=== PATIENT | female | born 1950 | race Hispanic/Latino ===

== ENCOUNTER 2018-02-17 16:04 | Emergency (ER) | payer OTHER, MEDICARE ==
[~2018-02-17 16:04] MED LIST: ASPI-1197 PO; GLIP10TA9 PO; LIRA0.6P SQ; LISI40TA4 PO; OMEP20CA10 PO; PREG150C PO; SERT100T12 PO; SIMV40TA5 PO; TRAM50TA4 PO; TRAZ-185 PO
[2018-02-17] MEDS ORDERED: ACETAMINOPHEN EXTRA STRENGTH 500 MG TABLET ONE (16:56)
[2018-02-17] MEDS ORDERED: SODIUM CHLORIDE 0.9% 1000ML 1,000 ML IV ONE (16:56)
[2018-02-17 16:57] LABS: BASOPHILS % (AUTO) 0.3 % (0.0-5.0); HEMATOCRIT 35.3 % (36-48); LYMPHOCYTES % (AUTO) 11.4 % (21.0-51.0); MEAN CORPUSCULAR HGB CONC 33.6 g/dL (32.0-36.0); MEAN CORPUSCULAR VOLUME 92.3 fL (79-99); MONOCYTES % (AUTO) 7.6 % (3.0-13.0); NEUTROPHILS % (AUTO) 80.7 % (40.0-77.0); PLATELET COUNT (AUTO) 111 K/uL (130-400); RED BLOOD CELL COUNT(AUTO) 3.82 MIL/uL (4.00-5.50); RED CELL DISTRIBUTION WIDTH 12.1 % (11.0-15.5); WHITE BLOOD COUNT (AUTO) 6.5 K/uL (4.8-10.8)
[2018-02-17 17:10] LABS: INR 1.03 (0.85-1.15); PROTHROMBIN TIME 10.8 SEC (9.6-11.6)
[2018-02-17 17:14] LABS: CARBON DIOXIDE 28 mmol/L (21-32); CHLORIDE 101 mmol/L (101-111); CREATININE 1.6 mg/dL (0.5-1.5); GLOMERULAR FILTR. RATE CALC 34 mL/min (>60); GLUCOSE,RANDOM 143 mg/dL (70-105); POTASSIUM 4.1 mmol/L (3.5-5.1); SODIUM SERUM 136 mmol/L (136-145); UREA NITROGEN, BLOOD 22 mg/dL (7-18)
[2018-02-17 17:22] LABS: APPEARANCE,URINE Clear (CLEAR); BILIRUBIN,URINE Negative (NEGATIVE); COLOR,URINE Yellow (YELLOW); GLUCOSE, URINE (UA) 500 mg/dL (NEGATIVE); KETONES,URINE Negative (NEGATIVE); LEUKOCYTE ESTERASE ,URINE Small (NEGATIVE); NITRATE,URINE Negative (NEGATIVE); OCCULT BLOOD,URINE Negative (NEGATIVE); PH,URINE 5.5 (5.0-8.0); PROTEIN,URINE Negative (NEGATIVE)
[2018-02-17 17:25] LABS: ALANINE AMINOTRANSFERASE 26 U/L (12-78); ALBUMIN 3.8 g/dL (3.5-5.0); ASPARTATE AMINOTRANSFERASE 30 U/L (10-37); BILIRUBIN,TOTAL 0.5 mg/dL (0.2-1.0); CREATINE KINASE, TOTAL 389 U/L (21-232); MYOGLOBIN 155 ng/mL (10-92); TOTAL PROTEIN, SERUM 7.6 g/dL (6.0-8.3); TROPONIN I < 0.04 ng/mL (0.00-0.06)
[2018-02-17 17:37] LABS: BACTERIA,URINE Rare /HPF (None Seen); RBC,URINE 0-1 /HPF (0-1); SQUAMOUS EPITHELIAL CELL,UR Rare /HPF (0-2)
[2018-02-17] MEDS ORDERED: CEFTRIAXONE SODIUM 1 GM ONE (18:34)
== END 2018-02-17 19:18 | disposition home or self-care (01) ==
LOC: EDH 16:04
DX: N39.0 Urinary tract infection, site not specified (principal); R50.9 Fever, unspecified; I10 Essential (primary) hypertension; E11.9 Type 2 diabetes mellitus without complications; Z90.710 Acquired absence of both cervix and uterus; Z88.8 Allergy status to other drugs, medicaments and biological substances
CPT/HCPCS: 36415; 71045; 80053; 81001; 82550; 83605; 83874; 84484; 85025; 85610; 85730; 87040 ×2; 87088; 87804 ×2; 93005; 96374; 99285; J0696; J7030

== ENCOUNTER 2018-02-20 03:51 | Observation (INO) | payer OTHER, MEDICARE ==
[~2018-02-20] VITALS: Ht 167.6 cm; Wt 82.1 kg
[2018-02-20] MEDS ORDERED: IBUPROFEN 600 MG TABLET ONE (04:26)
[2018-02-20] MEDS ORDERED: ACETAMINOPHEN 325 MG TAB ONE (04:26)
[2018-02-20 04:33] LABS: BASOPHILS % (AUTO) 0.8 % (0.0-5.0); HEMATOCRIT 30.9 % (36-48); MEAN CORPUSCULAR HEMOGLOBIN 31.9 pg (27.0-33.0); MEAN CORPUSCULAR HGB CONC 35.2 g/dL (32.0-36.0); MEAN CORPUSCULAR VOLUME 90.5 fL (79-99); NEUTROPHILS % (AUTO) 86.2 % (40.0-77.0); PLATELET COUNT (AUTO) 70 K/uL (130-400); RED BLOOD CELL COUNT(AUTO) 3.41 MIL/uL (4.00-5.50); RED CELL DISTRIBUTION WIDTH 12.1 % (11.0-15.5); WHITE BLOOD COUNT (AUTO) 3.6 K/uL (4.8-10.8)
[2018-02-20 04:34] LABS: APPEARANCE,URINE Cloudy (CLEAR); BILIRUBIN,URINE Negative (NEGATIVE); COLOR,URINE Yellow (YELLOW); GLUCOSE, URINE (UA) >=1000 mg/dL (NEGATIVE); KETONES,URINE 40 mg/dL (NEGATIVE); LEUKOCYTE ESTERASE ,URINE Negative (NEGATIVE); NITRATE,URINE Negative (NEGATIVE); OCCULT BLOOD,URINE Moderate (NEGATIVE); PROTEIN,URINE POS 2+ (NEGATIVE); UROBILINOGEN,URINE 0.2 mg/dL (0.2-1.0)
[2018-02-20 04:47] LABS: CREATININE 1.4 mg/dL (0.5-1.5); POTASSIUM 3.4 mmol/L (3.5-5.1)
[2018-02-20 04:54] LABS: PLATELET MORPHOLOGY COMMENT DECREASED
[2018-02-20 05:00] LABS: ALBUMIN 3.4 g/dL (3.5-5.0); BILIRUBIN,TOTAL 0.5 mg/dL (0.2-1.0); TOTAL PROTEIN, SERUM 7.2 g/dL (6.0-8.3)
[2018-02-20 05:31] LABS: BACTERIA,URINE Few /HPF (None Seen); MUCUS,URINE Few LPF (None Seen); SQUAMOUS EPITHELIAL CELL,UR 0-2 /HPF (0-2); WBC,URINE 0-1 /HPF (0-1)
[2018-02-20] MEDS ORDERED: DEXTROSE 50%-WATER 50 ML DISP.SYRIN IV PRN ×2 (07:45→09:00)
[2018-02-20] MEDS ORDERED: GLUCAGON 1MG KIT 1 MG ML IM PRN ×2 (07:45→09:00)
[2018-02-20 08:46] VITALS: BP 139/71
[2018-02-20] MEDS: DOXYCYCLINE HYCLATE 100 MG TABLET PO SCH ×2 (09:00→20:57)
[2018-02-20] MEDS ORDERED: POTASSIUM CHLORIDE 10% ELIXIR 20 MEQ/15 ML UDCUP PO PRN (09:30)
[2018-02-20] MEDS ORDERED: POTASSIUM CHLORIDE 20MEQ/100ML 100 ML IV PRN (09:30)
[2018-02-20] MEDS ORDERED: MAG HYDROX/AL HYDROX/SIMETH ES 30 ML SUSP UDCUP PO PRN (09:30)
[2018-02-20] MEDS ORDERED: LIDOCAINE HCL-MPF 1% 2ML VIAL IVP PRN (09:30)
[2018-02-20] MEDS ORDERED: LACTULOSE 20 GM/30 ML UDCUP PO PRN (09:30)
[2018-02-20] MEDS: SIMVASTATIN 20 MG TABLET PO SCH (10:11)
[2018-02-20] MEDS: GLIPIZIDE 5 MG TABLET PO SCH (10:12)
[2018-02-20] MEDS: PANTOPRAZOLE SODIUM 40 MG TABLET.DR PO SCH (10:12)
[2018-02-20] MEDS: SODIUM CHLORIDE 0.9% 1000ML 1,000 ML IV SCH ×3 (10:12→23:19)
[2018-02-20] MEDS ORDERED: INSULIN R PO SS1 SQ SCH (11:30)
[2018-02-20 11:56] VITALS: BP 136/72
[2018-02-20] MEDS: INSULIN HUMULIN R 100 UNIT/ML 3ML SQ SCH ×3 (12:46→20:57)
[2018-02-20] MEDS ORDERED: LOPERAMIDE HCL 2 MG CAP PO PRN (13:45)
[2018-02-20] MEDS: METRONIDAZOLE 500 MG TABLET PO SCH ×2 (14:42→21:55)
[2018-02-20] MEDS: ACETAMINOPHEN 325 MG TAB PO PRN ×2 (14:51→21:26)
[2018-02-20 15:21] VITALS: BP 138/69
[2018-02-20] MEDS ORDERED: MONT10TA24 PO (15:29)
[2018-02-20] MEDS ORDERED: ACET1TAB12 PO (15:29)
[2018-02-20] MEDS ORDERED: FERR-63 PO (15:29)
[2018-02-20 19:53] VITALS: BP 127/52
[2018-02-20] MEDS: SERTRALINE HCL 50 MG TABLET PO SCH (20:57)
[2018-02-20] MEDS ORDERED: PROCHLORPERAZINE EDISYLATE 10 MG/2 ML VIAL IV PRN (21:45)
[2018-02-20] MEDS ORDERED: PROCHLORPERAZINE EDISYLATE 10 MG/2 ML VIAL ONE (21:46)
[2018-02-20] MEDS: PROCHLORPERAZINE EDISYLATE 10 MG/2 ML VIAL IV PRN (21:55)
[2018-02-20 23:47] VITALS: BP 125/57
[2018-02-21 04:00] VITALS: BP 131/50
[2018-02-21] MEDS: SODIUM CHLORIDE 0.9% 1000ML 1,000 ML IV SCH ×3 (05:39→16:45)
[2018-02-21] MEDS: METRONIDAZOLE 500 MG TABLET PO SCH (05:39)
[2018-02-21 05:48] LABS: HEMATOCRIT 27.6 % (36-48); MEAN CORPUSCULAR HEMOGLOBIN 31.2 pg (27.0-33.0); MEAN CORPUSCULAR HGB CONC 34.4 g/dL (32.0-36.0); MEAN CORPUSCULAR VOLUME 90.8 fL (79-99); NUCLEATED RED BLOOD CELLS 0.1 % (0.0-0.19); PLATELET COUNT (AUTO) 49 K/uL (130-400); RED BLOOD CELL COUNT(AUTO) 3.04 MIL/uL (4.00-5.50); RED CELL DISTRIBUTION WIDTH 12.3 % (11.0-15.5); WHITE BLOOD COUNT (AUTO) 3.5 K/uL (4.8-10.8)
[2018-02-21] MEDS: INSULIN HUMULIN R 100 UNIT/ML 3ML SQ SCH ×3 (05:52→16:44)
[2018-02-21 06:04] LABS: CREATININE 1.3 mg/dL (0.5-1.5); POTASSIUM 3.4 mmol/L (3.5-5.1)
[2018-02-21 07:03] LABS: ERYTHROCYTE SEDIMENTATION RATE 27 MM/HR (0-30)
[2018-02-21 07:30] VITALS: BP 148/68
[2018-02-21] MEDS ORDERED: METHYLPREDNISOLONE SOD SUCC 40MG/ML 1ML IVP SCH ×2 (08:00→13:30)
[2018-02-21] MEDS ORDERED: DOXY100T19 PO (08:05)
[2018-02-21] MEDS ORDERED: PRED10TA3 PO (08:07)
[2018-02-21] MEDS: SERTRALINE HCL 50 MG TABLET PO SCH (08:55)
[2018-02-21] MEDS: POTASSIUM CHLORIDE 20 MEQ ERTAB PO PRN ×2 (08:55→13:43)
[2018-02-21] MEDS: DOXYCYCLINE HYCLATE 100 MG TABLET PO SCH (08:55)
[2018-02-21] MEDS: SIMVASTATIN 20 MG TABLET PO SCH (08:56)
[2018-02-21] MEDS: PANTOPRAZOLE SODIUM 40 MG TABLET.DR PO SCH (08:56)
[2018-02-21] MEDS: GLIPIZIDE 5 MG TABLET PO SCH (08:57)
[2018-02-21] MEDS ORDERED: ONDANSETRON HCL 4 MG/2 ML VIAL IVP PRN (09:00)
[2018-02-21] MEDS ORDERED: ASPIRIN 81MG TAB.CHEW PO SCH (09:00)
[2018-02-21] MEDS ORDERED: METRONIDAZOLE 500 MG TABLET PO SCH (09:00)
[2018-02-21] MEDS: ACETAMINOPHEN 325 MG TAB PO PRN (10:41)
[2018-02-21 11:00] VITALS: BP 148/76
[2018-02-21] MEDS ORDERED: METOCLOPRAMIDE 5 MG TABLET PO SCH (11:30)
[2018-02-21] MEDS ORDERED: ONDANSETRON HCL MDV 20ML 2 MG/ML VIAL IVP PRN (13:30)
[2018-02-21] MEDS: PROCHLORPERAZINE EDISYLATE 10 MG/2 ML VIAL IV PRN (13:44)
[2018-02-21 15:30] VITALS: BP 121/67
[2018-02-21] MEDS ORDERED: METOCLOPRAMIDE 10 MG/2 ML VIAL IVP SCH (16:30)
[2018-02-21] MEDS ORDERED: GLIPIZIDE 5 MG TABLET PO SCH (21:00)
== END 2018-02-21 20:00 | disposition home or self-care (01) ==
LOC: EDH 03:51 → 3DH 07:21
PROVIDERS: ADMIT Internal Medicine; ATTEND Internal Medicine
DX: E86.0 Dehydration (principal); A75.9 Typhus fever, unspecified; D69.6 Thrombocytopenia, unspecified; E78.2 Mixed hyperlipidemia; K63.5 Polyp of colon; M15.9 Polyosteoarthritis, unspecified; F32.9 Major depressive disorder, single episode, unspecified; F41.9 Anxiety disorder, unspecified; M51.06 Intervertebral disc disorders with myelopathy, lumbar region; M48.061 Spinal stenosis, lumbar region without neurogenic claudication; G56.03 Carpal tunnel syndrome, bilateral upper limbs; E11.40 Type 2 diabetes mellitus with diabetic neuropathy, unspecified; E11.22 Type 2 diabetes mellitus with diabetic chronic kidney disease; I12.9 Hypertensive chronic kidney disease with stage 1 through stage 4 chronic kidney disease, or unspecified chronic kidney disease; N18.3 Chronic kidney disease, stage 3 (moderate); K21.9 Gastro-esophageal reflux disease without esophagitis; M77.31 Calcaneal spur, right foot; I83.90 Asymptomatic varicose veins of unspecified lower extremity; K43.9 Ventral hernia without obstruction or gangrene; F11.20 Opioid dependence, uncomplicated; Z68.30 Body mass index [BMI] 30.0-30.9, adult; Z82.3 Family history of stroke; Z82.49 Family history of ischemic heart disease and other diseases of the circulatory system; Z83.3 Family history of diabetes mellitus; Z86.010 Personal history of colon polyps; Z90.710 Acquired absence of both cervix and uterus; Z79.84 Long term (current) use of oral hypoglycemic drugs
CPT/HCPCS: 36415 ×2; 80048; 80053; 81001; 82550; 82948 ×6; 83605; 84484; 85025; 85027; 85651; 86757; 87040 ×4; 87205; 87324; 87804 ×2; 93005; 96361 ×2; 96372 ×2; 96374; 96375 ×2; 96376 ×2; 97116; 97161; 99285; A4510; A4600; G0378 ×37; G8978; G8979; G8980; G8981; G8982; G8983; J0780; J1815 ×3; J2765; J2920 ×2; J3480; J3490; J7030 ×4

== ENCOUNTER → 2020-05-09 | Outpatient (CLI) | payer OTHER, MEDICARE ==
[~2020-05-09] MED LIST changes: -ASPI-1197 PO; +DOXY100T21 PO; +FERR-63 PO; -LIRA0.6P SQ; -LISI40TA4 PO; +MONT10TA96 PO; -OMEP20CA10 PO; +OMEP20CA12 PO; +PRED10TA3 PO; -PREG150C PO; +SIMV-46 PO; -SIMV40TA5 PO; -TRAM50TA4 PO; -TRAZ-185 PO
== END | disposition home or self-care (01) ==
LOC: RAH 15:01
PROVIDERS: ATTEND Internal Medicine
DX: M19.072 Primary osteoarthritis, left ankle and foot (principal); M77.32 Calcaneal spur, left foot
CPT/HCPCS: 73630

== ENCOUNTER 2023-02-17 06:09 | Day surgery (SDC) | payer OTHER, MEDICARE ==
[2023-02-15 09:44] LABS: BASOPHILS # (AUTO) 0.03 K/uL (0.00-0.20); BASOPHILS % (AUTO) 0.4 % (0.0-5.0); EOSINOPHILS # (AUTO) 0.07 K/uL (0.00-0.70); HEMATOCRIT 35.8 % (36-48); IMMATURE GRANULOCYTE ABSOLUTE 0.01 K/uL (0-1); LYMPHOCYTES # (AUTO) 1.5 K/uL (1.0-4.8); MEAN CORPUSCULAR HEMOGLOBIN 31.1 pg (27.0-33.0); MEAN CORPUSCULAR HGB CONC 34.1 g/dL (32.0-36.0); MEAN CORPUSCULAR VOLUME 91.3 fL (79-99); MONOCYTES # (AUTO) 0.3 K/uL (0.1-1.0); MONOCYTES % (AUTO) 3.9 % (3.0-13.0); NEUTROPHILS % (AUTO) 72.6 % (40.0-77.0); PLATELET COUNT (AUTO) 190 K/uL (130-400); RED BLOOD CELL COUNT(AUTO) 3.92 MIL/uL (4.00-5.50); RED CELL DISTRIBUTION WIDTH 11.8 % (11.0-15.5); WHITE BLOOD COUNT (AUTO) 6.9 K/uL (4.8-10.8)
[2023-02-15 10:00] LABS: CREATININE 0.9 mg/dL (0.5-1.5); POTASSIUM 4.5 mmol/L (3.5-5.1)
[2023-02-15 10:01] LABS: INR 0.94 (0.85-1.15); PROTHROMBIN TIME 10.9 SEC (9.6-11.6)
[2023-02-15 10:03] LABS: PARTIAL THROMBOPLASTIN TIME 30.3 SEC (26.3-35.5)
[2023-02-15 10:15] VITALS: BP 157/89; PULSE 82; RESP 18
[~2023-02-17] VITALS: Ht 167.6 cm; Wt 74.2 kg
[2023-02-17] VITALS (10 sets, daily range): BP systolic 138–162; BP diastolic 55–84; PULSE 65–111; RESP 10–21
[~2023-02-17 06:09] MED LIST changes: +ACET-3338 PO; +AEC81 PO; +CHOL500045 PO; -DOXY100T21 PO; +DULA0.75 SQ; -FERR-63 PO; -GLIP10TA9 PO; +INSLAN SQ; +LISI5TAB21 PO; +MONT-39 PO; -MONT10TA96 PO; -PRED10TA3 PO; +PREG150C47 PO; +SERT-440 PO; -SERT100T12 PO; +TRAZ-185 PO; +VITA-395 PO; +ZINC50TA64 PO; +iron PO
[2023-02-17] MEDS ORDERED: IOHEXOL 180 MG/ML 20 ML VIAL ONE (07:07)
[2023-02-17 08:48] LABS: APPEARANCE,CSF CLEAR (CLEAR); COLOR,CSF COLORLESS (COLORLESS); CSF TOTAL VOLUME 0.5 mL; CSF TUBE NUMBER 2; WHITE BLOOD CELL1,CSF 0 CMM (0-5)
[2023-02-17 08:51] LABS: RED BLOOD CELL1,CSF 904 CMM (0-0)
[2023-02-17] MEDS ORDERED: ACETAMINOPHEN 500 MG TABLET ONE (09:36)
== END 2023-02-17 12:10 | disposition home or self-care (01) ==
LOC: DAH 06:09 → EDSTATUS 08:00 → DAH 12:10
PROVIDERS: ATTEND Neurological Surgery
DX: M48.061 Spinal stenosis, lumbar region without neurogenic claudication (principal); M51.16 Intervertebral disc disorders with radiculopathy, lumbar region; Z79.899 Other long term (current) drug therapy; Z98.890 Other specified postprocedural states; Z79.01 Long term (current) use of anticoagulants; Z79.82 Long term (current) use of aspirin
CPT/HCPCS: 71045; 80048; 85025; 85610; 85730; 36415; 93005; 62304; 72132; 89051; 82948 ×2; A6260; Q9965; A4663; A6258

== ENCOUNTER → 2023-02-18 | Outpatient (CLI) | payer OTHER, MEDICARE | END | disposition home or self-care (01) | LOC: RAH 10:51 | PROVIDERS: ATTEND Internal Medicine | DX: M25.862 Other specified joint disorders, left knee (principal); M25.861 Other specified joint disorders, right knee; M48.8X6 Other specified spondylopathies, lumbar region; M51.36 Other intervertebral disc degeneration, lumbar region; W19.XXXA Unspecified fall, initial encounter; Y93.89 Activity, other specified; Y92.89 Other specified places as the place of occurrence of the external cause; Y99.8 Other external cause status ==

== ENCOUNTER 2023-03-03 05:47 | Observation (INO) | payer OTHER, MEDICARE ==
[2023-03-01 12:03] VITALS: BP 145/70; PULSE 82; RESP 14
[2023-03-01 12:09] LABS: BASOPHILS # (AUTO) 0.03 K/uL (0.00-0.20); BASOPHILS % (AUTO) 0.4 % (0.0-5.0); EOSINOPHILS # (AUTO) 0.09 K/uL (0.00-0.70); EOSINOPHILS % (AUTO) 1.3 % (0.0-8.0); HEMATOCRIT 36.1 % (36-48); IMMATURE GRANULOCYTE ABSOLUTE 0.02 K/uL (0-1); LYMPHOCYTES # (AUTO) 1.2 K/uL (1.0-4.8); LYMPHOCYTES % (AUTO) 17.8 % (21.0-51.0); MEAN CORPUSCULAR HEMOGLOBIN 31.2 pg (27.0-33.0); MEAN CORPUSCULAR HGB CONC 33.2 g/dL (32.0-36.0); MEAN CORPUSCULAR VOLUME 93.8 fL (79-99); MONOCYTES # (AUTO) 0.5 K/uL (0.1-1.0); NEUTROPHILS # (AUTO) 4.9 K/uL (1.8-7.7); NEUTROPHILS % (AUTO) 73.2 % (40.0-77.0); PLATELET COUNT (AUTO) 161 K/uL (130-400); RED BLOOD CELL COUNT(AUTO) 3.85 MIL/uL (4.00-5.50); RED CELL DISTRIBUTION WIDTH 11.9 % (11.0-15.5); WHITE BLOOD COUNT (AUTO) 6.7 K/uL (4.8-10.8)
[2023-03-01 12:27] LABS: CREATININE 1.1 mg/dL (0.5-1.5); POTASSIUM 4.7 mmol/L (3.5-5.1)
[2023-03-03] VITALS (26 sets, daily range): BP systolic 94–131; BP diastolic 36–68; PULSE 61–80; RESP 14–18; O2SAT 95–100
[~2023-03-03] VITALS: Ht 165.1 cm; Wt 74.3 kg
[~2023-03-03 05:47] MED LIST changes: +ACET-2079 PO; +BUPIVACAINE/EPI/PF 0.25% 50 ML VIAL IJ ONE; +CEFAZOLIN SODIUM 1 GM VIAL IRRIG ONE; +CEFAZOLIN SODIUM 2 GM VIAL IVPB ONE; +MORPHINE 10MG VIAL IM ONE
[2023-03-03] MEDS ORDERED: CEFAZOLIN SODIUM 2 GM VIAL ONE (06:14)
[2023-03-03] MEDS ORDERED: 0.9%NACL 1000ML 1,000 ML IV ONE (06:14)
[2023-03-03] MEDS ORDERED: LIDOCAINE 2%-EPI PF 30 ML+BUPIVACAINE/PF 0.25% 30ML /60ML SYR IJ SCH ×2 (06:30)
[2023-03-03] MEDS ORDERED: MIDAZOLAM HCL 1 MG/ML 2ML VIAL ONE (09:06)
[2023-03-03] MEDS ORDERED: PROPOFOL 10 MG/ML 20ML VIAL IV ONE (09:06)
[2023-03-03] MEDS ORDERED: FENTANYL CITRATE PF 50 MCG/1 ML 2ML VIAL ONE ×4 (09:07→14:15)
[2023-03-03] MEDS ORDERED: MORPHINE PF 100MG/10ML AMP IV ONE (09:17)
[2023-03-03] MEDS ORDERED: CEFAZOLIN SODIUM 1 GM VIAL ONE (09:17)
[2023-03-03] MEDS ORDERED: THROMBIN-JMI 20000 UNIT KIT TP ONE (09:18)
[2023-03-03] MEDS ORDERED: ROCURONIUM 10MG/1ML SYR 10 MG/ML ML ONE (09:40)
[2023-03-03] MEDS ORDERED: CEFAZOLIN SODIUM 2 GM VIAL IVPB ONE (09:45)
[2023-03-03] MEDS ORDERED: DEXAMETHASONE SOD PHOSPHATE 10MG/ML 1ML VIAL ONE (09:50)
[2023-03-03] MEDS ORDERED: GLYCOPYRROLATE 1 MG/5 ML SYRINGE ONE (09:54)
[2023-03-03] MEDS ORDERED: PROPOFOL 1000 MG/100 ML 100 ML IV ONE (10:04)
[2023-03-03] MEDS ORDERED: ARTIFICIAL TEARS 3.5 GM OINTMENT ONE (10:12)
[2023-03-03] MEDS ORDERED: ONDANSETRON 4MG INJ ONE (10:16)
[2023-03-03] MEDS ORDERED: PHENYLEPHRINE HCL 10 MG/ML 1ML VIAL IV ONE (10:30)
[2023-03-03] MEDS ORDERED: TRANEXAMIC ACID 1000MG/10ML ONE (11:08)
[2023-03-03] MEDS ORDERED: MORPHINE 10MG VIAL IM ONE (12:41)
[2023-03-03] MEDS ORDERED: CEFAZOLIN SODIUM 1 GM VIAL IRRIG ONE (12:41)
[2023-03-03] MEDS ORDERED: BUPIVACAINE/EPI/PF 0.25% 50 ML VIAL IJ ONE (12:41)
[2023-03-03] MEDS ORDERED: NEOSTIGMINE 5MG/5ML SYR IV ONE (13:52)
[2023-03-03] MEDS ORDERED: PROMETHAZINE HCL 25 MG/ML 1ML AMPULE IM PRN (14:30)
[2023-03-03] MEDS ORDERED: 0.9%NACL 10ML VIAL IVP PRN (14:30)
[2023-03-03] MEDS ORDERED: ACETAMINOPHEN WITH CODEINE 1 TAB TAB PO PRN (14:30)
[2023-03-03] MEDS ORDERED: HYDROCODONE/ACETAMINOPHEN 5/325 MG TAB PO PRN (14:30)
[2023-03-03] MEDS ORDERED: MORPHINE 2 MG SYG IVP PRN (14:30)
[2023-03-03] MEDS: DEXAMETHASONE SOD PHOSPHATE 4 MG/ML 1ML VIAL IVP SCH ×2 (16:00→19:55)
[2023-03-03] MEDS: CEFAZOLIN SODIUM 2 GM VIAL IVPB SCH ×2 (16:00→22:00)
[2023-03-03] MEDS: LACTATED RINGERS 1000ML 1,000 ML IV SCH (16:15)
[2023-03-03] MEDS: PREGABALIN 75 MG CAPSULE PO SCH (19:55)
[2023-03-03] MEDS ORDERED: ACETAMINOPHEN 650 MG PO SCH (21:00)
[2023-03-03] MEDS ORDERED: MONTELUKAST SODIUM 10 MG TAB PO SCH (21:00)
[2023-03-03] MEDS ORDERED: IRON 27 MG PO SCH (21:00)
[2023-03-03] MEDS ORDERED: NON-FORMULARY MEDICATION 1 EACH (Simvastatin 40 MG) PO SCH (21:00)
[2023-03-03] MEDS ORDERED: INSULIN GLARGINE 100 UNITS/ML 10 ML VIAL SQ SCH (21:00)
[2023-03-03] MEDS: ACETAMINOPHEN 650MG ER TAB PO SCH ×2 (21:00→21:59)
[2023-03-03] MEDS ORDERED: TRAZODONE HCL 50 MG TAB PO SCH (21:00)
[2023-03-03] MEDS ORDERED: PREGABALIN 150 MG PO SCH (21:00)
[2023-03-03] MEDS ORDERED: ASPIRIN 81 MG EC TAB PO SCH (21:00)
[2023-03-03] MEDS ORDERED: ATORVASTATIN 20 MG TABLET PO SCH (21:00)
[2023-03-03] MEDS: INSULIN HUMULIN R 100 UNIT/ML 3ML SQ SCH (21:44)
[2023-03-04] VITALS: BP 101/45; PULSE 90; RESP 18
[2023-03-04] MEDS: DEXAMETHASONE SOD PHOSPHATE 4 MG/ML 1ML VIAL IVP SCH ×2 (01:27→09:15)
[2023-03-04] MEDS: LACTATED RINGERS 1000ML 1,000 ML IV SCH (02:55)
[2023-03-04 04:00] VITALS: BP 104/49; PULSE 87; RESP 18
[2023-03-04] MEDS: INSULIN HUMULIN R 100 UNIT/ML 3ML SQ SCH (06:33)
[2023-03-04 07:59] VITALS: BP 104/51; PULSE 98; RESP 18
[2023-03-04 08:30] VITALS: O2SAT 100
[2023-03-04] MEDS ORDERED: NON-FORMULARY MEDICATION 1 EACH (Sertraline HCl 100 MG) PO SCH (09:00)
[2023-03-04] MEDS ORDERED: SERTRALINE HCL 50 MG TABLET PO SCH (09:00)
[2023-03-04] MEDS ORDERED: (Zinc Amino Acid Chelate (Zinc) 50 MG) PO SCH (09:00)
[2023-03-04] MEDS ORDERED: VITAMIN E 400 UNIT CAPSULE PO SCH (09:00)
[2023-03-04] MEDS ORDERED: LISINOPRIL 5 MG TABLET PO SCH (09:00)
[2023-03-04] MEDS ORDERED: NON-FORMULARY MEDICATION 1 EACH (Omeprazole 20 MG) PO SCH (09:00)
[2023-03-04] MEDS ORDERED: (Cholecalciferol (Vitamin D3) (Vitamin D3) 125 MCG) PO SCH (09:00)
[2023-03-04] MEDS: PREGABALIN 75 MG CAPSULE PO SCH (09:14)
[2023-03-04] MEDS: ACETAMINOPHEN 650MG ER TAB PO SCH (10:01)
[2023-03-04] MEDS ORDERED: TRAM100T40 PO (10:37)
[2023-03-10] MEDS ORDERED: (Dulaglutide (Trulicity) 0.75 MG) SQ SCH (09:00)
== END 2023-03-04 11:15 | disposition home or self-care (01) ==
LOC: DAH 05:47 → DAHIP 05:48 → DAH 05:48 → 4CH 15:40
PROVIDERS: ADMIT Neurological Surgery; ATTEND Neurological Surgery
DX: M48.061 Spinal stenosis, lumbar region without neurogenic claudication (principal); K21.9 Gastro-esophageal reflux disease without esophagitis; E11.9 Type 2 diabetes mellitus without complications; Z79.899 Other long term (current) drug therapy
CPT/HCPCS: 80048; 85025; 36415; 71045; 93005; 63047; 63048 ×3; 96372 ×2; 96365; 96375; 82948 ×5; 72020; 96376; A6260; G0378 ×20; A4510; A4663; J7120; A4344; J3010 ×4; J0690 ×5; J3490 ×4; J1100 ×4; J2710; J7030; J0665; J2704 ×2; J2274; J2405; J2371; J2270; J1815 ×2; A4215; A4223; A4222; A4221; A4600; J2250

== ENCOUNTER → 2023-11-25 | Outpatient (CLI) | payer OTHER, MEDICARE ==
[~2023-11-25] MED LIST changes: -BUPIVACAINE/EPI/PF 0.25% 50 ML VIAL IJ ONE; -CEFAZOLIN SODIUM 1 GM VIAL IRRIG ONE; -CEFAZOLIN SODIUM 2 GM VIAL IVPB ONE; -CHOL500045 PO; -MORPHINE 10MG VIAL IM ONE; +TRAM100T40 PO
== END | disposition home or self-care (01) ==
LOC: SHCH 07:38
PROVIDERS: ATTEND Student in an Organized Health Care Education/Training Program
DX: R94.31 Abnormal electrocardiogram [ECG] [EKG] (principal)
CPT/HCPCS: 93306

== ENCOUNTER → 2024-07-14 | Outpatient (CLI) | payer OTHER, MEDICARE ==
[~2024-07-14] MED LIST changes: +ACET-66 PO
--- NOTE | 2024-07-14 15:58 | HMCIMG ---
Exam Type: KNEE 3VWS LT Clinical Information: PAIN IN LEFT KNEE Comparison: None Findings: The bone examination is unremarkable. No fractures or dislocations are seen. No radiopaque foreign bodies are noted. Soft tissues are preserved. IMPRESSION: Normal examination.
== END | disposition home or self-care (01) ==
LOC: RAH 15:02
PROVIDERS: ATTEND Internal Medicine
DX: M25.562 Pain in left knee (principal)
CPT/HCPCS: 73562

== ENCOUNTER 2024-07-17 16:06 | Emergency (ER) | payer OTHER, MEDICARE ==
[~2024-07-17] VITALS: Ht 167.6 cm; Wt 72.6 kg
[~2024-07-17 16:06] MED LIST changes: -ACET-66 PO
[2024-07-17] MEDS ORDERED: ACET-66 PO (16:37)
--- NOTE | 2024-07-17 16:37 | ERN ---
General Chief Complaint: Knee Injury/Swelling Stated Complaint: LEFT KNEE PAIN Time Seen by MD: 16:07 Source: patient History of Present Illness Initial Comments Patient is a 74-year-old female coming in to be evaluated for left knee discomfort. Patient states that this has been ongoing for two weeks. She believes that the pain was exacerbated with movement and strain. Patient did get an x-ray but states that the PCP never called her to notify her if there was anything wrong with the knee. Allergies: Coded Allergies: celecoxib (Unverified Allergy, Unknown, 01/13/17) midazolam (Unverified Allergy, Unknown, 01/13/17) Home Meds Reported Medications Tramadol HCl (Tramadol HCl) 100 Mg Tablet, 100 MG PO Q6HPRN PRN for PAIN LEVEL 4 TO 6, TAB 03/04/23 Acetaminophen with Codeine (Acetaminophen-Cod #3 Tablet) 300 Mg-30 Mg Tablet, 1 EACH PO DAILY PRN for PAIN, TAB 03/01/23 Insulin Glargine,Hum.rec.anlog (Lantus) 100 Unit/Ml Inj, 10-20 UNITS SQ HS, ML 02/15/23 [iron] No Conflict Check, 27 MG PO HS 02/15/23 Dulaglutide (Trulicity) 0.75 Mg/0.5 Ml Pen.injctr, 0.75 MG SQ QWEEK 02/15/23 Lisinopril (Lisinopril) 5 Mg Tablet, 5 MG PO AM, TAB 02/15/23 Trazodone HCl (Trazodone HCl) 50 Mg Tablet, 50 MG PO HS, TAB 02/15/23 Montelukast Sodium (Montelukast Sodium) 10 Mg Tablet, 10 MG PO HS, TAB 02/15/23 Acetaminophen (8 Hour Pain Relief) 650 Mg Tablet.er, 650 MG PO BID, TAB 02/15/23 Pregabalin (Pregabalin) 150 Mg Capsule, 150 MG PO BID, CAP 02/15/23 Aspirin (ASPIRIN 81 MG ECTAB) 81 Mg Ectab, 81 MG PO HS, TAB.EC 02/15/23 Zinc Amino Acid Chelate (Zinc) 50 Mg Tablet, 50 MG PO AM, TAB 02/15/23 Vitamin E (Dl,Tocopheryl Acet) (Vitamin E) 180 Mg (400 Unit) Capsule, 180 MG PO AM, CAP 02/15/23 Simvastatin (Simvastatin) 40 Mg Tablet, 40 MG PO HS, TAB 01/13/17 Sertraline HCl (Sertraline HCl) 100 Mg Tablet, 100 MG PO AM, TAB 01/13/17 Omeprazole (Omeprazole) 20 Mg Capsule.dr, 20 MG PO DAILY, CAP 01/13/17 Past Medical History Past Medical History: Diabetes-Type II, High Cholesterol, Hypertension Past Surgical History: Other Surgical History Other: BACK SX ROS Dictation CONSTITUTIONAL: No chills, no fever, no weakness, no diaphoresis, no malaise. HEAD/FACE: No signs of trauma. EENT: No eye pain, no blurred vision, no tearing, no double vision, no ear pain, no ear discharge, no nose pain, no nasal congestion, no throat pain, no throat swelling, no mouth pain. RESPIRATORY: No cough, no orthopnea, no SOB, no stridor, no wheezing. CARDIOVASCULAR: No chest pain, no edema, no palpitations, no syncope. GASTROINTESTINAL/ABDOMINAL: No abdominal pain, no constipation, no diarrhea, no nausea, no vomiting. GENITOURINARY: No abnormal discharge, no dysuria, no frequent urination, no hematuria. No complaints of pain in the genitals. MUSCULOSKELETAL: No back pain, no gout, joint pain, no joint swelling, muscle pain, no muscle stiffness, no neck pain. INTEGUMENTARY: No change in color, no change in hair/nails, no dryness, no lesion, no lumps, no rash. NEUROLOGICAL/PSYCH: No anxiety, not depressed, no emotional problem, no headache, no numbness, no pre-existing deficit, no history of seizures, no tremors, no weakness. HEMATOLOGIC/LYMPHATIC: Not anemic, no history of blood clots, no apparent bleed ing, no bruising, glands not swollen. All Systems Negative, Except as Noted. Physical Exam Physical Exam Dictation VITAL SIGNS: Reviewed. GENERAL APPEARANCE: Alert, oriented x3, no acute distress, obese. HEAD AND FACE: Non-traumatic. EYES: PERRL, pink conjunctivas, eyelid no trauma, anterior chamber clear. EARS: Pinnas intact and no signs of trauma or erythema. Ear canals clear and no discharge. TMs no erythema. NOSE: No discharge, no bleeding. OROPHARYNX: Mouth normal, teeth no caries, tongue pink. Pharynx clear, no erythema. Tonsils no exudates, no abscesses noted. Mucous membrane moist. NECK: Supple, non-tender, no thyromegaly, no masses, no JVD, no bruits. BREAST: Deferred. CHEST: No tenderness, no crepitus, no paradoxical movement, no retractions. LUNGS: Clear, well-ventilated, symmetric, no rales, no wheezing, no rhonchi, no stridor, good breath sounds bilaterally. HEART: Regular rate, regular rhythm, no murmur, no gallops. VASCULAR: No peripheral edema. ABDOMEN: Soft, positive bowel sounds, nondistended, no guarding, nontender, no rebound, no masses no hepatomegaly, no splenomegaly, no Shook's sign, no hernias. RECTAL: Deferred. GENITAL: Deferred. NEUROLOGICAL: Normal speech, gross motor function intact, gross sensory function intact. MUSCULOSKELETAL: Neck nontender, full range of motion, back nontender, full range of motion. EXTREMITIES: Nontender, full range of motion. Left knee tenderness on palpation SKIN: Color pink, dry, no turgor, no rash, no lacerations, no abrasions, no contusions. LYMPHATICS: Deferred. Results Laboratory and Microbiology Labs Reviewed?: Yes EKG/XRAY/US/CT/MRI X-RAY Comment Left knee x-ray-NAD MDM MDM: Differential diagnosis: Knee strain, ligament strain, meniscus tear, Patient is a 74-year-old female coming in to be evaluated for left knee tenderness. X-ray did not disclose acute findings. Knee immobilizer was placed. I did advised patient appropriate follow up with PCP for long-term management of knee strain. ED Course Orders Procedure Category Date Status Time Knee 3vws Lt RAD 07/17/24 Taken 16:13 Vital Signs Date Time Temp Pulse Resp B/P (MAP) Pulse Ox O2 Delivery O2 Flow Rate FiO2 07/17/24 16:10 98.1 100 16 163/99 100 Room Air 0 DX & DISP Disposition: Discharge Departure Impression: Primary Impression: Strain of knee and leg, left Condition: Stable Scripts Acetaminophen (Tylenol) 500 Mg Tab 1 TAB PO Q6HPRN PRN for pain or fever for 5 Days, #30 TAB 0 Refills Prov: ALEXANDER GARCIA MD 07/17/24 Additional Instructions: FOLLOW-UP WITH PRIMARY CARE PROVIDER IN 1 TO 2 DAYS. TAKE MEDICATIONS DIRECTED HERE IN THE EMERGENCY ROOM. OKAY TO CONTINUE HOME MEDICATIONS UNLESS OTHERWISE DISCUSSED DURING YOUR VISIT IN THE EMERGENCY ROOM TODAY. RETURN TO YOUR NEAREST EMERGENCY ROOM IF SYMPTOMS WORSEN OR IF THERE IS NO IMPROVEMENT. CALL 911 IF YOU NEED IMMEDIATE ASSISTANCE. TAKE TYLENOL [id number] NEEDED AND IF NO CONTRAINDICATIONS ARE PRESENT. INCREASE ORAL HYDRATION. A WOUND CULTURE OR URINE CULTURE WAS ORDERED HERE IN THE EMERGENCY ROOM DEPARTMENT PLEASE FOLLOW-UP WITH PRIMARY CARE PROVIDER AND ADVISE THEM TO GET REPEAT PORTS FROM OUR FACILITY. IF YOU HAD ANY ROMAN WRAP/SPLINTS THAT WERE APPLIED HERE, PLEASE DO NOT REMOVE THEM UNTIL YOU SEE YOUR PRIMARY CARE OR SPECIALTY. Referrals: Referrals: JOANN OSULLIVAN MD (PCP) GARRET HIGGINS MD Time of Disposition: 16:35 ALEXANDER GARCIA MD Jul 17, 2024 16:37
--- NOTE | 2024-07-17 16:53 | HMCIMG ---
Exam Type: KNEE 3VWS LT Clinical Information: pain Comparison: None Findings: The bone examination is unremarkable. No fractures or dislocations are seen. No radiopaque foreign bodies are noted. Soft tissues are preserved. IMPRESSION: Normal examination.
[2024-07-17 17:35] VITALS: BP 144/82; PULSE 77; RESP 18; TEMP 97.6; O2SAT 98
--- NOTE | 2024-07-17 17:37 | NUR ---
KNEE IMMOBILIZER TO LEFT LEG AND CRUTCHES GIVEN WITH PT SHOWING RETURN DEMONSTRATION
== END 2024-07-17 17:38 | disposition home or self-care (01) ==
LOC: EDH 16:06
DX: S86.812A Strain of other muscle(s) and tendon(s) at lower leg level, left leg, initial encounter (principal); E11.9 Type 2 diabetes mellitus without complications; E78.00 Pure hypercholesterolemia, unspecified; I10 Essential (primary) hypertension; Z79.82 Long term (current) use of aspirin; Z79.899 Other long term (current) drug therapy; X58.XXXA Exposure to other specified factors, initial encounter; Y93.89 Activity, other specified; Y92.89 Other specified places as the place of occurrence of the external cause; Y99.8 Other external cause status
CPT/HCPCS: 29505; 73562; 99283